=== PATIENT | male | born 1990 | race Caucasian/White ===

== ENCOUNTER 2024-04-27 16:58 | Emergency (ER) | payer OTHER, SELFPAY ==
[2024-04-27 17:02] VITALS: BP 135/85; PULSE 74; RESP 18; TEMP 36.9; O2SAT 99; BMI 29.8
--- NOTE | 2024-04-27 17:18 | ED.GENADULT ---
HPI - General Adult General Chief complaint: Extremity Pain/Injury, Lower Stated complaint: left foot infection/pain, leech on it last wk Time Seen by Provider: 04/27/24 17:13 Source: patient Mode of arrival: ambulatory Limitations: no limitations History of Present Illness HPI narrative: 33-year-old male presenting today with redness, pain and swelling of the left foot. Patient states that there was a Leech on his foot last Sunday. Over the last week the foot has gotten progressively more swollen and painful. He denies any systemic symptoms. Generally healthy, no medications. Related Data Previous Rx's ?Medication ?Instructions ?Recorded cephalexin 500 mg capsule 500 mg PO QID 7 days #28 caps 04/27/24 Allergies Allergy/AdvReac Type Severity Reaction Status Date / Time No Known Drug Allergies Allergy Verified 04/27/24 17:06 Review of Systems Status of ROS: Reports: 10 or more systems reviewed and unremarkable except as noted in History and below Exam Narrative: Exam Narrative: Well-nourished well-developed patient in no acute distress. Alert and oriented. Answers questions appropriately. Mood and affect are appropriate. Thoughts are goal oriented and rational. No tangential or magical thinking noted. Patient speaks in full sentences without needing to catch his breath. HEENT: Normocephalic atraumatic. Pupils are equally round reactive to light. Extraocular muscles are intact. Conjunctivae are moist without any icterus noted. Moist mucous membranes. Extremities: Bilateral lower extremities are without pitting edema. Normal DP and PT pulses. Patient does have some swelling on the dorsal surface of the left foot. He has erythema at the base of the toes , especially the 2nd and 3rd toes. The area is hot to touch and the skin is indurated consistent with cellulitis. Skin: Well perfused. Abnormality per above Const: Vital Signs, click to edit/add: Vital Signs - 24 hr 04/27/24 17:02 Temperature 98.5 F Pulse Rate [Pulse Oximeter] 74 Respiratory Rate 18 Blood Pressure [Ri ght Upper Arm] 135/85 Pulse Oximetry 99 Oxygen Delivery Me thod Room Air Course Vital Signs Vital signs: Initial Vital Signs Temperature 98.5 F 04/27/24 17:02 Temperature Source Oral 04/27/24 17:02 Pulse Rate 74 04/27/24 17:02 Pulse Strength 3+ Normal 04/27/24 17:02 Respiratory Rate 18 04/27/24 17:02 Blood Pressure 135/85 04/27/24 17:02 Blood Pressure Mean 101 04/27/24 17:02 Blood Pressure Position Sitting 04/27/24 17:02 Pulse Oximetry 99 04/27/24 17:02 Oxygen Delivery Method Room Air 04/27/24 17:02 Vital Signs Temperature 98.5 F 04/27/24 17:02 Pulse Rate 74 04/27/24 17:02 Respiratory Rate 18 04/27/24 17:02 Blood Pressure 135/85 04/27/24 17:02 Pulse Oximetry 99 04/27/24 17:02 Oxygen Delivery Method Room Air 04/27/24 17:02 Temperature 98.5 F 04/27/24 17:02 Pulse Rate 74 04/27/24 17:02 Respiratory Rate 18 04/27/24 17:02 Blood Pressure 135/85 04/27/24 17:02 Pulse Oximetry 99 04/27/24 17:02 Oxygen Delivery Method Room Air 04/27/24 17:02 Medical Decision Making MDM Narrative Medical decision making narrative: 33-year-old male cellulitis of the left foot. Will treat with Keflex q.i.d. for a week. Discharge Plan Discharge Clinical Impression: Cellulitis Patient Disposition: Home, Self-Care Condition: Stable Additional Instructions: Take all antibiotics as instructed. Elevate foot as much as possible throughout the day. Prescriptions: New cephalexin 500 mg capsule 500 mg PO QID 7 Days Qty: 28 0RF Stand Alone Forms: MyHealth Info Instructions
== END 2024-04-27 17:39 | disposition home or self-care (01) ==
PROVIDERS: Emergency Provider Family Medicine
DX: L03.116 Cellulitis of left lower limb (principal)
CPT/HCPCS: 99283; 99284